=== PATIENT | female | born 1960 | race Two or more races ===

== ENCOUNTER 2024-07-08 14:09 | Outpatient (RCR) | payer BC, SELFPAY ==
--- NOTE | 2024-07-08 14:30 | PT.OIERPT ---
PT OP Initial Eval Patient Information Outpatient Physical Therapy Treatment Date: 07/08/24 Visit Reasons: Left knee PAIN Medical Diagnosis: M25.562 Treatment Dx #1: L knee pain Start of Care: 07/08/24 Date of Onset: 4 months ago Smoking Status Smoking Status: Never smoker Initial Assessment Subjective: Pt is 64 yr old female who reports L knee pain x4 months. Increased pain with certain movements. Recent MRI shows meniscus tear according to pt. She is doing most activities but sometimes with pain. PMH: none reported Imaging: she has MRI report, will bring next time Pt goal: less knee pain Objective: L knee ArOM: Flexion: 120 deg Extension: -5 deg SLR: 45 deg Strength: Quads: 4-/5 HS: 4-/5 Jose Carlos's: positive TTP: moderate of medial joint line Varus/valgus stress: negative Assessment: Pt presents with L knee rotation and extension sensitivity consistent with medial meniscus irritation/tear and OA. Pt requires skilled therapy in order to meet goals and has fair rehab potential. 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 Ind with HEP 2. Improved L knee extension to full 3. Pt will tolerate HH chores x45 mins without knee pain Treatment Plan 1. Manual therapy ? 2. Therex ? 3. Modalities as indicated, moist heat, ice, estim Frequency and Duration: 2x a week for 12 sessions plus evaluation Certification Dates: 07/08/24 to 10/04/24 Procedure Charges OP PT Eval Mod Complex 30 minutes: Yes
== END 2024-07-20 23:59 | disposition home or self-care (01) ==
LOC: CPTX 14:09
PROVIDERS: PCP Orthopaedic Surgery; Referring Provider Orthopaedic Surgery; Visit Provider Orthopaedic Surgery
DX: M25.562 Pain in left knee (principal); S83.242D Other tear of medial meniscus, current injury, left knee, subsequent encounter; X58.XXXD Exposure to other specified factors, subsequent encounter
CPT/HCPCS: 97162

== ENCOUNTER → 2024-07-27 | Outpatient (CLI) | payer BC, SELFPAY ==
--- NOTE | 2024-07-27 09:30 | XR_ITS ---
Examination: Screening digital mammography, bilateral Computer aided detection 3-D breast Tomosynthesis, bilateral Date and time of exam: July 27, 2024 0954 hours Compared to mammograms dating to July 09 Indication: Screening Technique: Nonmagnified MLO, CC views of the breasts to been obtained, reconstructed from 3-D Tomosynthesis images. R2 computer aided detection program utilized for evaluation of suspicious masses and/or abnormal calcifications. 3-D Tomosynthesis images obtained. Findings: The breasts are heterogeneously dense, which may obscure small masses Benign calcifications No interval suspicious masses Impression: BI-RADS category II: Benign Findings. Recommend 1 year follow-up mammogram.
== END | disposition home or self-care (01) ==
LOC: CDIM 09:37
PROVIDERS: Referring Provider Internal Medicine; Visit Provider Internal Medicine
DX: Z12.31 Encounter for screening mammogram for malignant neoplasm of breast (principal); R92.323 Mammographic fibroglandular density, bilateral breasts; R92.1 Mammographic calcification found on diagnostic imaging of breast
CPT/HCPCS: 77063; 77067

== ENCOUNTER 2024-08-05 10:00 | Outpatient (RCR) | payer BC, SELFPAY ==
--- NOTE | 2024-07-26 18:09 | PT.ODAYNRPT ---
PT Outpatient Daily Note OP Daily Note Outpatient Physical Therapy Treatment Date: 07/26/24 Visit Reasons: Left knee pain Subjective: Same as time of evaluation. Brings in MRI results of L knee from 2022 Objective: See F/S for therex Assessment: Ssx consistent with MRI results of medial meniscus tear Plan: Continue per POC Length of Time (minutes) of Treatment: 30 Minutes Procedure Charges Therapeutic Exercise 30 minutes: Yes
--- NOTE | 2024-07-29 09:18 | PT.ODAYNRPT ---
PT Outpatient Daily Note OP Daily Note Outpatient Physical Therapy Treatment Date: 07/29/24 Visit Reasons: Left knee pain Subjective: Mild L knee soreness after last visit Objective: See F/S for therex Assessment: Low tissue irritability with step ups and closed-chain therex. Ssx consistent with MRI results of medial meniscus tear Plan: Continue per POC Length of Time (minutes) of Treatment: 30 Minutes Procedure Charges Therapeutic Exercise 30 minutes: Yes
--- NOTE | 2024-08-02 10:36 | PT.ODAYNRPT ---
PT Outpatient Daily Note OP Daily Note Outpatient Physical Therapy Treatment Date: 08/02/24 Visit Reasons: Left knee pain Subjective: Less knee soreness after last visit Objective: See F/S for therex Assessment: Low tissue irritability with step ups and closed-chain therex. Ssx consistent with MRI results of medial meniscus tear Plan: Continue per POC Length of Time (minutes) of Treatment: 30 Minutes Procedure Charges Therapeutic Exercise 30 minutes: Yes
--- NOTE | 2024-08-05 10:34 | PT.ODAYNRPT ---
PT Outpatient Daily Note OP Daily Note Outpatient Physical Therapy Treatment Date: 08/05/24 Visit Reasons: Left knee pain Subjective: No new complaints. Objective: Please see flow sheet for ther ex list. Assessment: Interventions completed with on pain to report. Plan: Continue with POC. Length of Time (minutes) of Treatment: 30 Minutes Procedure Charges Therapeutic Exercise 30 minutes: Yes
== END 2024-08-20 23:59 | disposition home or self-care (01) ==
LOC: CPTX 10:00
PROVIDERS: PCP Orthopaedic Surgery; Referring Provider Orthopaedic Surgery; Visit Provider Orthopaedic Surgery
DX: M25.562 Pain in left knee (principal)
CPT/HCPCS: 97110

== ENCOUNTER 2024-09-16 09:00 | Outpatient (RCR) | payer BC, SELFPAY ==
--- NOTE | 2024-08-30 13:14 | PT.ODAYNRPT ---
PT Outpatient Daily Note OP Daily Note Outpatient Physical Therapy Treatment Date: 08/30/24 Visit Reasons: Left knee pain Subjective: Sometimes the knee feels better, sometimes it feels the same as before therapy but it still hurts on the inside part. Objective: See F/S for therex Assessment: Low tissue irritability with step ups and closed-chain therex. Ssx consistent with MRI results of medial meniscus tear Plan: Continue per POC Length of Time (minutes) of Treatment: 30 Minutes Procedure Charges Therapeutic Exercise 30 minutes: Yes
--- NOTE | 2024-09-02 10:32 | PT.ODAYNRPT ---
PT Outpatient Daily Note OP Daily Note Outpatient Physical Therapy Treatment Date: 09/02/24 Visit Reasons: Left knee pain Subjective: Sometimes the knee feels better, sometimes it feels the same as before therapy but it still hurts on the inside part. Objective: See F/S for therex Assessment: Low tissue irritability with step ups and closed-chain therex. Ssx consistent with MRI results of medial meniscus tear Plan: Continue per POC Length of Time (minutes) of Treatment: 30 Minutes Procedure Charges Therapeutic Exercise 30 minutes: Yes
--- NOTE | 2024-09-16 09:47 | PT.ODAYNRPT ---
PT Outpatient Daily Note OP Daily Note Outpatient Physical Therapy Treatment Date: 09/16/24 Visit Reasons: Left knee pain Subjective: Sometimes the knee feels better, sometimes it feels the same as before therapy but it still hurts on the inside part. Objective: See F/S for therex Assessment: Low tissue irritability with step ups and closed-chain therex. Ssx consistent with MRI results of medial meniscus tear Plan: Continue per POC Length of Time (minutes) of Treatment: 30 Minutes Procedure Charges Therapeutic Exercise 30 minutes: Yes
== END 2024-09-17 23:59 | disposition home or self-care (01) ==
LOC: CPTX 09:00
PROVIDERS: PCP Orthopaedic Surgery; Referring Provider Orthopaedic Surgery; Visit Provider Orthopaedic Surgery
DX: M25.562 Pain in left knee (principal); S83.207D Unspecified tear of unspecified meniscus, current injury, left knee, subsequent encounter; X58.XXXD Exposure to other specified factors, subsequent encounter
CPT/HCPCS: 97110

== ENCOUNTER → 2024-09-17 | Outpatient (CLI) | payer BC, SELFPAY ==
[2024-09-23 07:07] LABS: Measles Antibody (IgG) >300.00 AU/mL; Rubella Antibody (IgG) <0.90 INDEX
== END | disposition home or self-care (01) ==
PROVIDERS: PCP Internal Medicine; Referring Provider Psychiatry & Neurology Neurology; Visit Provider Psychiatry & Neurology Neurology
DX: Z86.19 Personal history of other infectious and parasitic diseases (principal)
CPT/HCPCS: 36415; 86735; 86762; 86765

== ENCOUNTER 2024-10-07 09:00 | Outpatient (RCR) | payer BC, SELFPAY ==
--- NOTE | 2024-09-21 10:36 | PT.ODAYNRPT ---
PT Outpatient Daily Note OP Daily Note Outpatient Physical Therapy Treatment Date: 09/21/24 Visit Reasons: Left knee pain Subjective: Sometimes the knee feels better, sometimes it feels the same as before therapy but it still hurts on the inside part. Objective: See F/S for therex Assessment: Low tissue irritability with step ups and closed-chain therex. Ssx consistent with MRI results of medial meniscus tear Plan: Continue per POC Length of Time (minutes) of Treatment: 30 Minutes Procedure Charges Therapeutic Exercise 30 minutes: Yes
--- NOTE | 2024-09-23 13:20 | PT.ODAYNRPT ---
PT Outpatient Daily Note OP Daily Note Outpatient Physical Therapy Treatment Date: 09/23/24 Visit Reasons: Left knee pain Subjective: Sometimes the knee feels better, sometimes it feels the same as before therapy but it still hurts on the inside part. Objective: See F/S for therex Assessment: Low tissue irritability with step ups and closed-chain therex. Ssx consistent with MRI results of medial meniscus tear Plan: Continue per POC Length of Time (minutes) of Treatment: 30 Minutes Procedure Charges Therapeutic Exercise 30 minutes: Yes
--- NOTE | 2024-09-28 12:56 | PT.ODAYNRPT ---
PT Outpatient Daily Note OP Daily Note Outpatient Physical Therapy Treatment Date: 09/28/24 Visit Reasons: Left knee pain Subjective: Pt reports L knee pain comes and goes, does not feel like she has progressed much. Pt shared that she has good and bad days when it comes to her L knee. Objective: Please see flow sheet for ther ex list. Assessment: Light strengthening interventions completed with minimal pain. Plan: Continue with POC. Length of Time (minutes) of Treatment: 30 Minutes Procedure Charges Therapeutic Exercise 30 minutes: Yes
--- NOTE | 2024-09-30 15:17 | PT.ODAYNRPT ---
PT Outpatient Daily Note OP Daily Note Outpatient Physical Therapy Treatment Date: 09/30/24 Visit Reasons: Left knee pain Subjective: Sometimes the knee feels better, sometimes it feels the same as before therapy but it still hurts on the inside part. Objective: See F/S for therex Assessment: Low tissue irritability with step ups and closed-chain therex. Ssx consistent with MRI results of medial meniscus tear Plan: Reassess Length of Time (minutes) of Treatment: 30 Minutes Procedure Charges Therapeutic Exercise 30 minutes: Yes
--- NOTE | 2024-10-07 10:29 | PT.ODS1RPT ---
PT OP Progress/Discharge Note Date of Service: 10/07/24 Progress Note/DC Note Progress Note/Discharge Note: Progress Note Patient Information Visit Reasons: Left knee pain Service Continue Service or Discharge: Continue Service Status Subjective: Overall the knee feels better with less pain when she stands. She wants to continue with therapy. Objective: See F/S for therex L knee AROM; Extension: -4 deg Flexion: 120 deg Strength: quads: 4/5 Extension: 4/5 Assessment: Pt has attended 12/ Rx sessions with good progress with goals. Pt can stand for 45 mins without knee pain to meet that goal and she is independent with HEP. Pt has low tissue irritability with step ups and closed-chain therex. Ssx consistent with MRI results of medial meniscus tear. Pt would benefit from continued therapy to improve L knee extension ROM. Plan: Request additional visits x6 and extend POC dates from 10/04/24 to 12/04/24 in order to finish visits. We need MD signature on this progress note or an updated referral in order to continue therapy. Procedure Charges Therapeutic Exercise 30 minutes: Yes
== END 2024-10-18 23:59 | disposition home or self-care (01) ==
LOC: CPTX 09:00
PROVIDERS: PCP Orthopaedic Surgery; Referring Provider Orthopaedic Surgery; Visit Provider Orthopaedic Surgery
DX: M25.562 Pain in left knee (principal)
CPT/HCPCS: 97110

== ENCOUNTER → 2024-11-24 | Outpatient (CLI) | payer BC, SELFPAY ==
--- NOTE | 2024-11-24 14:20 | XR_ITS ---
Examination: Bone densitometry Date and time of exam:November 24, 2024 1547 hours INDICATIONS: Menopause age 49 but imaging calcium 13 years, personal history osteopenia Technique: Lumbar spine and hip total bone mineralization values of an calculated. Peak reference and age match control results have been displayed. Findings: Lumbar spine total bone mineralization is1.023 gm/cm2. This is 0.2 standard deviations below peak reference. This is 1.7 standard deviations above age-matched controls. Hip total bone mineralization is 0.819 gm/cm2 This is 1.0 standard deviations below peak reference. This is 0.3 standard deviations above age-matched controls Impression: There is normal mineralization based on lumbar spine measurements. There is osteopenia based on hip measurements Lumbar mineralization is increased 2.2% compared with October 26, 2020 Hip mineralization is increased 2.8% compared with October 26, 2020
== END | disposition home or self-care (01) ==
PROVIDERS: PCP Obstetrics & Gynecology; Referring Provider Obstetrics & Gynecology; Visit Provider Obstetrics & Gynecology
DX: M85.89 Other specified disorders of bone density and structure, multiple sites (principal)
CPT/HCPCS: 77080

== ENCOUNTER → 2025-01-03 | Outpatient (CLI) | payer BC, SELFPAY ==
[2025-01-03 09:31] LABS: Basophils # (Auto) 0.1 Thou/mm3 (0.0-0.2); Basophils % (Auto) 1 % (0-2.5); Eosinophils # (Auto) 0.2 Thou/mm3 (0.0-0.5); Eosinophils % (Auto) 3 % (0-10); Hematocrit 38.8 % (36.0-46.0); Hemoglobin 12.7 g/dL (12.0-16.0); Immature Granulocytes % (Auto) 0 % (0-0); Immature Granulocytes Auto 0.01 Thou/mm3 (0.00-0.00); Lymphocytes # (Auto) 2.5 Thou/mm3 (1.0-4.8); Lymphocytes % (Auto) 36 % (10-50); Mean Corpuscular HGB Conc 32.7 g/dl (31.0-37.0); Mean Corpuscular Volume 86 fL (80-100); Monocytes # (Auto) 0.5 Thou/mm3 (0.0-0.8); Monocytes % (Auto) 8 % (0-12); Neutrophils # (Auto) 3.5 Thou/mm3 (1.8-7.7); Neutrophils % (Auto) 52 % (37-80); Nucleated Red Blood Cell % 0 /100 WBC (0); Platelet Count 290 Thou/mm3 (140-440); RDW Standard Deviation 42.9 fL (36.4-46.3); Red Blood Count 4.54 Miln/mm3 (4.00-5.20); White Blood Count 6.8 Thou/mm3 (3.6-11.0)
[2025-01-03 09:41] LABS: Glucose Estimated Average 108 mg/dL (80-131); Hemoglobin A1C 5.4 % Hgb (4.8-6.0)
[2025-01-03 09:49] LABS: Alanine Aminotransferase 15 U/L (10-49); Albumin, Serum 4.4 gm/dL (3.4-4.8); Albumin/Globulin Ratio 1.7 (1.2-2.2); Alkaline Phosphatase 73 U/L (46-116); Anion Gap 7 (7-16); Aspartate Amino Transferase 22 U/L (0-34); BUN/Creatinine Ratio 15 Ratio (12-20); Bilirubin,Total 0.9 mg/dL (0.3-1.2); Blood Urea Nitrogen 12 mg/dL (9-23); Calcium 9.1 mg/dL (8.3-10.6); Calcium (Corrected) 9.1 mg/dL (8.5-10.1); Carbon Dioxide 27.7 mMol/L (20.0-31.0); Cardiac Risk Estimate 3.5 RATIO (3.7-5.6); Chloride 107 mMol/L (98-107); Cholesterol 156 mg/dL (132-200); Creatinine (Component) 0.8 mg/dL (0.6-1.3); Globulin 2.6 gm/dL (2.3-3.5); Glucose 101 mg/dL (74-106); HDL Cholesterol 45 mg/dL (40-60); LDL Cholesterol,Calculated 88 mg/dL (0-130); Osmolality,Calculated 282 (275-295); Sodium 142 mMol/L (136-145); Thyroid Stimulating Hormone 1.86 uIU/mL (0.55-4.78); Triglycerides 114 mg/dL (30-150); eGFR > 60 See Note
== END | disposition home or self-care (01) ==
PROVIDERS: PCP Obstetrics & Gynecology; Referring Provider Internal Medicine; Visit Provider Internal Medicine
DX: Z00.00 Encounter for general adult medical examination without abnormal findings (principal); E66.09 Other obesity due to excess calories; R73.03 Prediabetes
CPT/HCPCS: 36415; 80053; 80061; 83036; 84443; 85025